=== PATIENT | female | born 1965 | race Two or more races ===

== ENCOUNTER 2021-11-16 18:21 | Emergency (ER) | payer OTHER ==
[~2021-11-16] VITALS: Ht 154.9 cm; Wt 121.0 kg
[~2021-11-16 18:21] MED LIST: FURO20TA4 PO; LISI40TA13 PO; POTA10TA11 PO; SIMV-46 PO
[2021-11-16] MEDS ORDERED: HYDR25TA PO (18:47)
[2021-11-16] MEDS ORDERED: METF-873 PO (18:47)
[2021-11-17] MEDS ORDERED: IBUPROFEN 400MG TABLET PO ONE (00:15)
[2021-11-17] MEDS ORDERED: ACETAMINOPHEN 325MG TABLET PO ONE (00:15)
[2021-11-17 01:05] LABS: BASOPHILS % 0.4 % (0.0-2.0); HEMATOCRIT. 45.5 % (36.0-48.0); LYMPHOCYTES % 27.4 % (20.0-50.0); MEAN CORPUSCULAR HEMOGLOBIN 30.8 pg (28.0-32.0); MEAN CORPUSCULAR VOLUME 93.2 fL (81.0-99.0); MEAN PLATELET VOLUME 10.3 fl (7.4-10.4); MONOCYTES % 8.4 % (2.0-8.0); NEUTROPHILS % 58.8 % (40.0-76.0); PLATELET 252 x1000/uL (130-400); RED BLOOD CELL COUNT 4.88 mill/uL (4.2-5.4)
[2021-11-17 01:17] LABS: CHLORIDE 103 mEq/L (98-107)
[2021-11-17 01:19] LABS: CLARITY URINE CLEAR (CLEAR); COLOR URINE YELLOW (YELLOW); KETONES URINE NEGATIVE (NEGATIVE); LEUKOCYTE ESTERASE URINE 2+ (NEGATIVE); NITRITE URINE NEGATIVE (NEGATIVE); OCCULT BLOOD URINE 1+ (NEGATIVE); PH URINE 5.5 (4.5-8.0); PROTEIN URINE NEGATIVE (NEGATIVE); SPECIFIC GRAVITY URINE 1.006 (1.005-1.030); UROBILINOGEN URINE 0.2 E.U./dL (0.2-1.0)
[2021-11-17] MEDS ORDERED: CEPH250C2 MT (03:17)
[2021-11-17 04:53] VITALS: BP 112/67
== END 2021-11-17 04:00 | disposition home or self-care (01) ==
LOC: ER 18:21
DX: N39.0 Urinary tract infection, site not specified (principal); R51.9 Headache, unspecified; E11.9 Type 2 diabetes mellitus without complications; E78.00 Pure hypercholesterolemia, unspecified; I10 Essential (primary) hypertension; Z98.890 Other specified postprocedural states; Z79.899 Other long term (current) drug therapy; Z20.822 Contact with and (suspected) exposure to COVID-19
CPT/HCPCS: 36415; 70450; 71045; 80053; 81003; 84484; 85025; 87086; 93005; 99285; C9803; U0003; U0005